=== PATIENT | male | born 1970 | race Caucasian/White ===

== ENCOUNTER → 2018-02-25 | Outpatient (CLI) | payer MEDICARE ==
[~2018-02-25] MED LIST: GABA100C PO; GLIP5TAB10 PO; LISI5TAB7 PO; METF500T5 PO; bp med; gabapentin PO
[2018-02-25 12:48] LABS: ALANINE AMINOTRANSFERASE 40 U/L (12-78); ALBUMIN 3.3 g/dL (3.4-5.0); ANION GAP 9 mmol/L (5-15); CALCIUM 8.5 mg/dL (8.5-10.1); CHLORIDE 99 mmol/L (98-107); CREATININE 0.94 mg/dL (0.7-1.3)
[2018-02-25 12:51] LABS: ALKALINE PHOSPHATASE 45 U/L (45-117); BILIRUBIN,TOTAL 0.4 mg/dL (0.2-1.0); TOTAL PROTEIN 6.3 g/dL (6.4-8.2)
== END | disposition home or self-care (01) ==
LOC: STAR 11:15
PROVIDERS: ATTEND Orthopaedic Surgery
DX: Z01.818 Encounter for other preprocedural examination (principal); M95.8 Other specified acquired deformities of musculoskeletal system; M25.562 Pain in left knee
CPT/HCPCS: 36415; 80053; 93005

== ENCOUNTER 2018-03-01 12:29 | Inpatient (IN) | payer MEDICARE ==
[~2018-03-01] VITALS: Ht 170.2 cm; Wt 93.2 kg
[~2018-03-01 12:29] MED LIST changes: -BUPIVACAINE/PF 0.5% ONE; -EPINEPHRINE 1 MG/ML, 1ML ONE; -FENTANYL PF 100 MCG/2ML ONE; -KETAMINE 10 MG/ML, 20ML ONE; -LACTATED RINGERS 1,000 ML IV SCH; -LIDOCAINE-MPF 1%, 2ML INFIL ONE; -LIDOCAINE/PF 1%, 30ML ONE; -MIDAZOLAM 1 MG/ML, 2ML ONE
[2018-03-01 13:15] VITALS: BP 129/82
[2018-03-01 14:04] VITALS: BP 129/82
[2018-03-01 14:50] LABS: HEMOGLOBIN A1C 10.5 % (4.2-6.3)
[2018-03-01] MEDS ORDERED: ONDANSETRON 2MG/ML, 2ML IVPush PRN (15:00)
[2018-03-01] MEDS ORDERED: LABETALOL 5MG/ML, 20ML IVPush PRN (15:00)
[2018-03-01] MEDS ORDERED: HYDROcodone/APAP 5/325 TABLET PO PRN (15:00)
[2018-03-01] MEDS ORDERED: ACETAMINOPHEN 325 MG TABLET PO PRN (15:00)
[2018-03-01] MEDS ORDERED: hydrALAzine 20 MG/ML, 1ML IVPush PRN (15:00)
[2018-03-01] MEDS ORDERED: INSULIN GLARGINE 100 UNITS/ML, PEN SQ-INSULIN ONE (15:30)
[2018-03-01] MEDS: GABAPENTIN 300 MG CAPSULE PO SCH ×2 (16:56→20:02)
[2018-03-01] MEDS: SODIUM CHLORIDE 0.9% 1,000 ML IV SCH (16:56)
[2018-03-01] MEDS: INSULIN LISPRO 100 UNITS/ML, PEN SQ-INSULIN SCH ×2 (16:57→20:15)
[2018-03-01 19:23] VITALS: BP 126/82
[2018-03-01] MEDS ORDERED: metFORMIN 500 MG TABLET PO SCH (21:00)
[2018-03-01] MEDS ORDERED: MAGNESIUM SULFATE PMX 2GM/50ML 50 ML IV ONE (22:00)
[2018-03-01] MEDS ORDERED: INSULIN GLARGINE 100 UNITS/ML, PEN SQ-INSULIN SCH (22:00)
[2018-03-02 01:29] VITALS: BP 129/83
[2018-03-02] MEDS: SODIUM CHLORIDE 0.9% 1,000 ML IV SCH (03:14)
[2018-03-02 05:56] LABS: BASOPHILS # (AUTO) 0.04 x10^3/uL (0-0.1); BASOPHILS % (AUTO) 1 % (0-1); EOSINOPHILS # (AUTO) 0.21 x10^3/uL (0-0.4); EOSINOPHILS % (AUTO) 4 % (1-7); LYMPHOCYTES # (AUTO) 2.49 x10^3/uL (1-3.4); LYMPHOCYTES % (AUTO) 42 % (22-44); MD NO; MEAN CORPUSCULAR HEMOGLOBIN 30.5 pg (27.5-34.5); MEAN CORPUSCULAR HGB CONC 34.2 g/dL (33.2-36.2); MEAN CORPUSCULAR VOLUME 89.3 fL (81-97); MEAN PLATELET VOLUME 9.1 fL (7.4-10.4); MONOCYTES # (AUTO) 0.38 x10^3/uL (0.2-0.8); MONOCYTES % (AUTO) 6 % (2-9); NEUTROPHILS # (AUTO) 2.87 x10^3/uL (1.8-6.8); NEUTROPHILS % (AUTO) 48 % (42-75); PLATELET COUNT 229 x10^3/uL (130-400); RED BLOOD COUNT 4.92 x10^6/uL (4.38-5.82); RED CELL DISTRIBUTION WIDTH 12.2 % (9.4-14.8)
[2018-03-02 06:04] LABS: INTERNATIONAL NORMALIZED RATIO 0.94 (0.93-1.1); PROTHROMBIN TIME 9.8 Seconds (9.6-11.5)
[2018-03-02 06:06] LABS: ANION GAP 6 mmol/L (5-15); CALCIUM 8.2 mg/dL (8.5-10.1); CHLORIDE 103 mmol/L (98-107); CREATININE 0.88 mg/dL (0.7-1.3)
[2018-03-02 06:50] VITALS: BP 126/88
[2018-03-02] MEDS ORDERED: INSULIN GLARGINE 100 UNITS/ML, PEN SQ-INSULIN SCH ×2 (07:00→09:00)
[2018-03-02] MEDS ORDERED: INSULIN LISPRO 100 UNITS/ML, PEN SQ-INSULIN SCH (07:00)
[2018-03-02] MEDS ORDERED: LISINOPRIL 20 MG TABLET PO SCH (09:00)
== END 2018-03-02 09:11 | disposition left against medical advice (07) | DRG 639 ==
LOC: 4NOR 12:29
PROVIDERS: ADMIT Orthopaedic Surgery; ATTEND Orthopaedic Surgery
DX: E11.9 Type 2 diabetes mellitus without complications (principal); M21.862 Other specified acquired deformities of left lower leg; Z53.8 Procedure and treatment not carried out for other reasons
CPT/HCPCS: 36415; 80048; 82962; 83036; 83735; 84100; 85025; 85610; J1815; J3475; J7030

== ENCOUNTER → 2018-03-01 | Outpatient (CLI) | payer MEDICARE ==
[2018-02-25 11:47] VITALS: BP 120/75
[~2018-03-01] VITALS: Ht 170.2 cm; Wt 91.5 kg
[~2018-03-01] MED LIST changes: +BUPIVACAINE/PF 0.5% ONE; +EPINEPHRINE 1 MG/ML, 1ML ONE; +FENTANYL PF 100 MCG/2ML ONE; +KETAMINE 10 MG/ML, 20ML ONE; +LACTATED RINGERS 1,000 ML IV SCH; +LIDOCAINE-MPF 1%, 2ML INFIL ONE; +LIDOCAINE/PF 1%, 30ML ONE; +MIDAZOLAM 1 MG/ML, 2ML ONE
[2018-03-01 06:00] VITALS: BP 120/75
== END | disposition home or self-care (01) ==
LOC: CLISVCS 05:11 → OUT 05:11 → EDSTATUS 07:00 → OUT 07:05
PROVIDERS: ATTEND Orthopaedic Surgery
DX: M95.8 Other specified acquired deformities of musculoskeletal system (principal); M25.562 Pain in left knee; E11.9 Type 2 diabetes mellitus without complications; Z53.9 Procedure and treatment not carried out, unspecified reason
CPT/HCPCS: 82947; 82962; J7120; J0171; J2250; J3010; J3490